=== PATIENT | male | born 2000 | race Caucasian/White ===

== ENCOUNTER 2022-05-12 16:10 | Emergency (ER) | payer BC ==
[2022-05-12] MEDS ORDERED: Ketorolac Tromethamine 30 MG/ML VIAL ONE (17:23)
[2022-05-12] MEDS ORDERED: cefTRIAXone\\ROCEPHIN 2 GM VIAL ONE (17:24)
[2022-05-12 17:40] LABS: #Eosinphils 0.1 10x3/uL (0.0-0.5); #Monocytes 0.5 10x3/uL (0.0-1.1); #Neutrophils 3.3 10x3/uL (1.5-8.4); %Basophils 0.2 % (0.0-2.0); %Eosinophils 1.8 % (0.0-6.0); %Lymphocytes 11.4 % (18.0-47.0); %Monocytes 11.4 % (0.0-10.0); Mean Corpuscular HGB CONC 35.9 g/dL (32.0-36.0); Mean Corpuscular Hemoglobin 35.6 pg (27.0-33.0); Mean Corpuscular Volume 99.1 fl (81.2-95.1); Mean Platelet Volume 9.5 fl (7.4-10.4); Platelet Count 56 10x3/uL (150-450); RBC Distribution Width 16.1 % (11.5-14.5); Red Blood Cell (RBC) Count 3.37 10x6/uL (4.32-5.72); White Blood Cell (WBC) Count 4.4 10x3/uL (3.5-10.5)
[2022-05-12 17:48] LABS: ALT (SGPT) 60 U/L (8-55); AST (SGOT) 60 U/L (5-34); Albumin 3.7 g/dL (3.5-5.0); Alkaline Phosphatase 85 U/L (40-110); Anion Gap 10 mmol/L (10-20); BUN (Urea Nitrogen) 10 mg/dL (8.9-20.6); Bilirubin, Total 1.3 mg/dL (0.2-1.2); CRP (Inflammatory) Less than 0.50 mg/dL (= or < 0.5); Calc. Creatinine Clearance 0 mL/min (70-130); Calcium 8.7 mg/dL (7.8-10.44); Carbon Dioxide 24 mmol/L (22-29); Chloride 109 mmol/L (98-107); Estimated GFR 133; Globulin 3.3 g/dL (2.4-3.5); Glucose 84 mg/dL (70-105); Potassium 3.9 mmol/L (3.5-5.1); Sodium 139 mmol/L (136-145)
[2022-05-12 17:57] LABS: Anisocytosis SLIGHT = 6-15 cells (100X) (0-5/hpf); Ovalocytes SLIGHT = 2-5 cells (100X) (0-1/hpf); Platelet Morphology Comment Appears Decreased
[2022-05-12 18:44] LABS: SARS-CoV-2 NAA Rapid Test Not Detected (NotDetected)
== END 2022-05-12 18:25 | disposition short-term general hospital (02) ==
LOC: CSHERS 16:10
DX: M65.841 Other synovitis and tenosynovitis, right hand (principal)
CPT/HCPCS: 36415; 80053; 85025; 85652; 86140; 87040; 96365; 96367; 96375; J0696; J1885; J3370; U0002

== ENCOUNTER 2022-06-17 12:51 | Emergency (ER) | payer BC ==
[2022-06-17 14:52] LABS: ALT (SGPT) 62 U/L (8-55); AST (SGOT) 72 U/L (5-34); Alkaline Phosphatase 95 U/L (40-110); Anion Gap 12 mmol/L (10-20); BUN (Urea Nitrogen) 12 mg/dL (8.9-20.6); Bilirubin, Total 2.7 mg/dL (0.2-1.2); Calc. Creatinine Clearance 0 mL/min (70-130); Calcium 8.6 mg/dL (7.8-10.44); Carbon Dioxide 22 mmol/L (22-29); Chloride 105 mmol/L (98-107); Estimated GFR 137; Glucose 79 mg/dL (70-105); Potassium 3.7 mmol/L (3.5-5.1); Sodium 135 mmol/L (136-145)
[2022-06-17 15:05] LABS: #Eosinphils 0.1 10x3/uL (0.0-0.5); #Monocytes 0.6 10x3/uL (0.0-1.1); #Neutrophils 4.4 10x3/uL (1.5-8.4); %Basophils 0.3 % (0.0-2.0); %Eosinophils 2.2 % (0.0-6.0); %Lymphocytes 12.1 % (18.0-47.0); %Monocytes 10.5 % (0.0-10.0); %Neutrophils 74.4 % (40.0-75.0); Mean Corpuscular HGB CONC 36.1 g/dL (32.0-36.0); Mean Corpuscular Hemoglobin 35.5 pg (27.0-33.0); Mean Corpuscular Volume 98.4 fl (81.2-95.1); Mean Platelet Volume 9.8 fl (7.4-10.4); Platelet Count 62 10x3/uL (150-450); RBC Distribution Width 16.8 % (11.5-14.5); Red Blood Cell (RBC) Count 3.66 10x6/uL (4.32-5.72); White Blood Cell (WBC) Count 5.9 10x3/uL (3.5-10.5)
[2022-06-17 15:56] LABS: Bilirubin Neg (Negative); Blood, Urine Negative (Negative); Clarity Clear (Clear); Glucose, Urine (Dipstick) Normal (Negative); Ketone, Urine Negative (Negative); Leukocyte Negative (Negative); Nitrite Negative (Negative); Protein, Urine (Dipstick) Negative (Neg-Trace); Specific Gravity, Urine 1.015 (1.002-1.036)
== END 2022-06-17 16:50 | disposition home or self-care (01) ==
LOC: CSHERS 12:51
DX: L02.411 Cutaneous abscess of right axilla (principal)
CPT/HCPCS: 80053; 81003; 83605; 85025; 86140; 87040; 87086; 87149; 96365; 96366; J3370

== ENCOUNTER 2023-01-21 13:25 | Emergency (ER) | payer BC | END 2023-01-21 16:02 | disposition home or self-care (01) | LOC: CSHERS 13:25 | DX: S61.431A Puncture wound without foreign body of right hand, initial encounter (principal); W19.XXXA Unspecified fall, initial encounter ==

== ENCOUNTER 2023-06-24 20:58 | Emergency (ER) | payer BC ==
[2023-06-24] MEDS ORDERED: Lidocaine 1% MPF 2 ML VIAL ONE (22:38)
[2023-06-24] MEDS ORDERED: cefTRIAXone (ROCEPHIN) 1 GM VIAL ONE (22:38)
== END 2023-06-24 23:49 | disposition home or self-care (01) ==
LOC: CSHERS 20:58
DX: L03.113 Cellulitis of right upper limb (principal)
CPT/HCPCS: 36415; 84550; 96372; J0696